=== PATIENT | female | born 1945 | race Caucasian/White ===

== ENCOUNTER 2022-06-12 12:51 | Outpatient (CLI) | payer MEDICARE, SELFPAY ==
[2022-06-12 13:03] LABS: Basophils Percent Auto 0.5 % (0.2-1.2); Eosinophils Absolute Auto 0.1 K/mm3 (0-0.3); Eosinophils Percent Auto 2.2 % (0-4.4); Hematocrit 33.7 % (37.0-47.0); Hemoglobin 11.5 g/dL (12.0-15.0); Immature Granulocyte Absolute 0.01 K/mm3 (0.00-0.031); Immature Granulocyte Percent A 0.2 % (0-0.5); Lymphocytes Absolute Auto 1.21 K/mm3 (0.9-3.2); Lymphocytes Percent Auto 18.9 % (18.3-44.2); Mean Corpuscular HGB Conc 34.1 g/dl (32-36); Mean Corpuscular Hemoglobin 30.8 pg (26-34); Mean Corpuscular Volume 90.3 fl (80-100); Mean Platelet Volume 8.2 fl (7.4-10.4); Monocytes Absolute Auto 0.5 K/mm3 (0.1-0.6); Monocytes Percent Auto 8.4 % (2.6-8.5); Neutrophils Absolute Auto 4.5 K/mm3 (1.3-6.7); Neutrophils Percent Auto 69.8 % (45.5-73.1); Platelet Count Result 184 k/mm3 (150-375); Red Blood Count 3.73 M/mm3 (4.2-5.4); Red Cell Distribution Width 12.7 % (11.5-14.5); White Blood Count 6.4 K/mm3 (4.5-10.0)
[2022-06-12 13:07] LABS: Blood Urea Nitrogen 20 mg/dL (8-26); Carbon Dioxide 32 mmol/L (22-30); Chloride 94 mmol/L (98-109); Estimated Glomerular Filt Rate > 60; Glucose 101 mg/dL (70-105); Potassium 3.5 mmol/L (3.5-4.9); Sodium 135 mmol/L (138-146)
[2022-06-12 13:38] LABS: Alanine Aminotransferase 16 U/L (6-35); Albumin Level 4.5 g/dL (3.5-5.1); Alkaline Phosphatase 88 U/L (38-126); Anion Gap 7 mmol/L (8-16); Aspartate Amino Transferase 30 U/L (14-36); Bilirubin,Total 0.4 mg/dL (0.2-1.3); Blood Urea Nitrogen 21 mg/dL (7-17); Calcium 9.3 mg/dL (8.4-10.2); Carbon Dioxide 31 mmol/L (22-30); Chloride 96 mmol/L (98-107); Estimated Glomerular Filt Rate > 60; Glucose 98 mg/dL (65-110); Potassium 3.6 mmol/L (3.4-5.0); Sodium 134 mmol/L (137-145)
== END 2022-06-12 12:52 | disposition home or self-care (01) ==
LOC: ANHLAB 12:52
PROVIDERS: PCP Family Medicine; Visit Provider Internal Medicine Hematology & Oncology
DX: C50.911 Malignant neoplasm of unspecified site of right female breast (principal)
CPT/HCPCS: 36415; 80047; 80053; 85025

== ENCOUNTER 2022-12-26 09:21 | Outpatient (CLI) | payer MEDICARE, SELFPAY ==
[2022-12-26 09:38] LABS: Basophils Percent Auto 0.6 % (0.2-1.2); Eosinophils Absolute Auto 0.1 K/mm3 (0-0.3); Eosinophils Percent Auto 2.1 % (0-4.4); Hematocrit 32.5 % (37.0-47.0); Hemoglobin 11.1 g/dL (12.0-15.0); Immature Granulocyte Absolute 0.01 K/mm3 (0.00-0.031); Immature Granulocyte Percent A 0.2 % (0-0.5); Lymphocytes Absolute Auto 1.14 K/mm3 (0.9-3.2); Lymphocytes Percent Auto 23.6 % (18.3-44.2); Mean Corpuscular HGB Conc 34.2 g/dl (32-36); Mean Corpuscular Hemoglobin 31.7 pg (26-34); Mean Corpuscular Volume 92.9 fl (80-100); Mean Platelet Volume 8.4 fl (7.4-10.4); Monocytes Absolute Auto 0.4 K/mm3 (0.1-0.6); Monocytes Percent Auto 7.5 % (2.6-8.5); Neutrophils Absolute Auto 3.2 K/mm3 (1.3-6.7); Platelet Count Result 187 k/mm3 (150-375); Red Cell Distribution Width 11.8 % (11.5-14.5); White Blood Count 4.8 K/mm3 (4.5-10.0)
[2022-12-26 10:50] LABS: Alanine Aminotransferase 13 U/L (6-35); Albumin Level 4.6 g/dL (3.5-5.1); Alkaline Phosphatase 67 U/L (38-126); Anion Gap 7 mmol/L (8-16); Aspartate Amino Transferase 31 U/L (14-36); Bilirubin,Total 0.4 mg/dL (0.2-1.3); Blood Urea Nitrogen 16 mg/dL (7-17); Calcium 9.6 mg/dL (8.4-10.2); Carbon Dioxide 28 mmol/L (22-30); Chloride 95 mmol/L (98-107); Estimated Glomerular Filt Rate > 60; Glucose 102 mg/dL (65-110); Potassium 4.9 mmol/L (3.4-5.0); Sodium 130 mmol/L (137-145)
[2022-12-29 06:19] LABS: CA 15-3 18 U/mL (<32)
== END 2022-12-26 09:22 | disposition home or self-care (01) ==
LOC: ANHLAB 09:23
PROVIDERS: PCP Family Medicine; Visit Provider Internal Medicine Hematology & Oncology
DX: C50.911 Malignant neoplasm of unspecified site of right female breast (principal)
CPT/HCPCS: 36415; 80053; 85025; 86300

== ENCOUNTER 2022-12-26 09:47 | Outpatient (CLI) | payer MEDICARE, SELFPAY ==
--- NOTE | ~2022-12-26 | MM_ITS ---
EXAMINATION: MM screening [facility] BI w aggie HISTORY: Screening mammogram, history of right breast cancer TECHNIQUE: Craniocaudal and mediolateral oblique 3-D tomosynthesis images were obtained and synthetic 2-D images were generated. CAD analysis was submitted and interpreted. COMPARISON: 12/24/2021, 12/19/2021 BREAST PARENCHYMAL COMPOSITION: There are scattered areas of fibroglandular density. FINDINGS: There is new focal asymmetry in the posterior third of the inner right breast as well as di ffuse skin thickening of the right breast, consistent with interval lumpectomy and radiation change. No suspicious mass, calcification, or architectural distortion are identified. IMPRESSION: 1. Changes of interval lumpectomy and radiation therapy in the right breast without mammographic evid ence of malignancy. 2. Recommend routine screening mammography in one year. BI-RADS Category 2: Benign finding(s). Reviewed, dictated and finalized at location L. IMPRESSION: 1. Changes of interval lumpectomy and radiation therapy in the right breast wit hout mammographic evidence of malignancy. 2. Recommend routine screening mammography in one year. BI-RADS Category 2: Benign finding(s).
--- NOTE | ~2022-12-26 | DEXA_ITS ---
Bone Density Report Name: KISHORE ALEXANDER Age: 77 Sex: Female Ethnicity: White Date of : 1945 Indication: postmenopausal; screening for osteoporosis; height loss; cancer; Referring Provider: MARCIANO MORALES Study: Bone densitometry was performed. Exam Date: December 26, 2022 Accession number: [id number] Bone Density: Region BMD T-score Z-score Classification AP Spine(L1-L4) 1.372 3.0 5.6 Normal Femoral Neck (Left) 0.694 -1.4 0.9 Osteopenia Total Hip (Left) 0.812 -1.1 0.9 Osteopenia Femoral Neck (Right) 0.755 -0.8 1.4 Normal Total Hip (Right) 0.818 -1.0 1.0 Normal Total Hip Mean 0.815 -1.1 1.0 Osteopenia World Health Organization criteria for BMD impression classify patients as: Normal (T-score at or above -1.0), Osteopenia (T-score between -1.0 and -2.5), or Osteoporosis (T-score at or below -2.5). 10-year Fracture Risk(1): Major Osteoporotic Fracture 13% Hip Fracture 2.8% Reported Risk Factors: [place] (), Neck BMD=0.694, BMI=26.3 (1) FRAX(R) Version 3.08. Fracture probability calculated for an untreated patient. Fracture probability may be lower if the patient has received treatment. Clinical Information Provided by Patient: Has the following medical conditions: Cancer Patient maximum height was 65 Menopause Age: 56 Onset of menses at age 9 Number of children 4 Impression: The patient has low bone mass, based on the Left Femoral Neck T-score. The patient has an estimated ten-year risk of hip fracture of 2.8% and an estimated ten-year risk of major fracture of 13%, based on the WHO FRAX algorithm. Discussion: BONE DENSITY IS LOW AT ONE OR MORE SKELETAL SITES. This patient's lowest T-score is low at one or more skeletal sites. It meets the World Health Organization's (WHO) criteria for ?low bone mass? (T-score between -1.0 and -2.5). The patient's 10-year risk of fracture as calculated by FRAX is less than the threshold where pharmacological therapy is recommended by the National Osteoporosis Foundation (NOF). However, all treatment decisions require clinical judgment and consideration of individual patient factors, including patient preferences, comorbidities, previous drug use, risk factors not captured in the FRAX model (e.g., frailty, falls, vitamin D deficiency, increased bone turnover, interval significant decline in bone density) and possible under or overestimation of fracture risk by FRAX. The patient should follow a healthful lifestyle (good nutrition with adequate calcium and vitamin D, and appropriate weight-bearing exercise). Follow-Up: Consider repeating this study in 2 to 3 years to reassess this patient's status, or sooner if there is some new clinical indication. Reported by: [facility] on 12/26/2022 10:30:00 AM.
== END 2022-12-26 09:48 | disposition home or self-care (01) ==
PROVIDERS: PCP Family Medicine; Visit Provider Internal Medicine Hematology & Oncology
DX: Z12.31 Encounter for screening mammogram for malignant neoplasm of breast (principal); M85.89 Other specified disorders of bone density and structure, multiple sites
CPT/HCPCS: 36415; 77063; 77067; 77080; 80053; 85025; 86300

== ENCOUNTER 2023-01-10 12:24 | Outpatient (CLI) | payer MEDICARE, SELFPAY ==
[2023-01-10 12:37] LABS: Basophils Percent Auto 0.4 % (0.2-1.2); Eosinophils Absolute Auto 0.1 K/mm3 (0-0.3); Eosinophils Percent Auto 1.5 % (0-4.4); Hematocrit 31.6 % (37.0-47.0); Hemoglobin 10.6 g/dL (12.0-15.0); Immature Granulocyte Absolute 0.02 K/mm3 (0.00-0.031); Immature Granulocyte Percent A 0.4 % (0-0.5); Lymphocytes Absolute Auto 1.19 K/mm3 (0.9-3.2); Mean Corpuscular HGB Conc 33.5 g/dl (32-36); Mean Corpuscular Hemoglobin 32.1 pg (26-34); Mean Corpuscular Volume 95.8 fl (80-100); Mean Platelet Volume 8.2 fl (7.4-10.4); Monocytes Absolute Auto 0.3 K/mm3 (0.1-0.6); Monocytes Percent Auto 6.2 % (2.6-8.5); Neutrophils Absolute Auto 3.5 K/mm3 (1.3-6.7); Neutrophils Percent Auto 68.5 % (45.5-73.1); Platelet Count Result 182 k/mm3 (150-375); Red Cell Distribution Width 12.2 % (11.5-14.5); White Blood Count 5.2 K/mm3 (4.5-10.0)
[2023-01-10 16:28] LABS: Iron 88 ug/dL (37-170)
[2023-01-10 16:39] LABS: Anion Gap 6 mmol/L (8-16); Blood Urea Nitrogen 11 mg/dL (7-17); Calcium 9.6 mg/dL (8.4-10.2); Carbon Dioxide 27 mmol/L (22-30); Chloride 96 mmol/L (98-107); Estimated Glomerular Filt Rate > 60; Glucose 90 mg/dL (65-110); Potassium 4.5 mmol/L (3.4-5.0); Sodium 129 mmol/L (137-145)
[2023-01-10 16:41] LABS: Percent Iron Saturation 31 % (20-50)
[2023-01-10 17:31] LABS: Vitamin B12 > 1000.0 pg/mL (239-931)
[2023-01-20 15:25] LABS: CA 15-3 21 U/mL (<32)
== END 2023-01-10 12:25 | disposition home or self-care (01) ==
LOC: ANHLAB 12:26
PROVIDERS: PCP Family Medicine; Visit Provider Internal Medicine Hematology & Oncology
DX: C50.911 Malignant neoplasm of unspecified site of right female breast (principal); D64.9 Anemia, unspecified; E55.9 Vitamin D deficiency, unspecified
CPT/HCPCS: 36415; 80048; 82306; 82607; 82728; 83540; 83550; 85025; 86300

== ENCOUNTER 2023-12-31 09:05 | Outpatient (CLI) | payer MEDICARE, SELFPAY ==
--- NOTE | ~2023-12-31 | MM_ITS ---
EXAMINATION: MM screening [facility] BI w aggie HISTORY: Screening mammogram TECHNIQUE: Craniocaudal and mediolateral oblique 3-D tomosynthesis images were obtained and synthetic 2-D images were generated. CAD analysis was submitted and interpreted. COMPARISON: 12/26/2022 BREAST PARENCHYMAL COMPOSITION:Dense: The breasts are heterogeneously dense, which may obscure small masses. FINDINGS: Stable bilateral benign calcifications. Stable diffuse skin thickening of the right breast. No suspicious mass, calcification, or architectural distortion are identified in either breast to doss ggest malignancy. There has been no suspicious interval change. IMPRESSION: No mammographic evidence of malignancy. Recommend routine screening mammography in one year. BI-RADS Category 2: Benign finding(s). Reviewed, dictated and finalized at location .
== END 2023-12-31 09:06 | disposition home or self-care (01) ==
LOC: ANHIMG 09:09
PROVIDERS: PCP Family Medicine; Referring Provider Radiology Radiation Oncology; Visit Provider Internal Medicine Hematology & Oncology
DX: Z12.31 Encounter for screening mammogram for malignant neoplasm of breast (principal)
CPT/HCPCS: 77063; 77067

== ENCOUNTER 2024-12-29 10:11 | Outpatient (CLI) | payer MEDICARE, SELFPAY ==
--- NOTE | ~2024-12-29 | DEXA_ITS ---
Bone Density Report Name: KISHORE ALEXANDER Age: 79 Sex: Female Ethnicity: White Date of : 1945 Indication: osteopenia; height loss; prior fracture; cancer; Referring Provider: MARCAINO MORALES Study: Bone densitometry was performed. Exam Date: December 29, 2024 Accession number: [id number] Bone Density: Region BMD T-score Z-score Classification AP Spine(L1-L4) 1.385 3.1 5.8 Normal Femoral Neck (Left) 0.704 -1.3 1.0 Osteopenia Total Hip (Left) 0.868 -0.6 1.5 Normal Femoral Neck (Right) 0.838 -0.1 2.2 Normal Total Hip (Right) 0.880 -0.5 1.6 Normal Total Hip Mean 0.874 -0.6 1.6 Normal World Health Organization criteria for BMD impression classify patients as: Normal (T-score at or above -1.0), Osteopenia (T-score between -1.0 and -2.5), or Osteoporosis (T-score at or below -2.5). 10-year Fracture Risk: FRAX not reported because: Prior hip or vertebral fracture Previous Exams: Region Exam Age BMD T-score BMD Change BMD Change Date g/cm2 vs Baseline vs Previous AP Spine (L1-L4) 12/29/2024 79 1.385 3.1 0.013 (1.0%) 0.013 (1.0%) 12/26/2022 77 1.372 3.0 Total Hip(Left) 12/29/2024 79 0.868 -0.6 0.056 (6.9%)* 0.056 (6.9%)* 12/26/2022 77 0.812 -1.1 Total Hip(Right) 12/29/2024 79 0.880 -0.5 0.061 (7.5%)* 0.061 (7.5%)* 12/26/2022 77 0.818 -1.0 *Denotes significance at 95% confidence level, LSC for AP Spine = 0.022 g/cm2, LSC for Total Hip = 0.027 g/cm2 Clinical Information Provided by Patient: Have had a previous hip or vertebral fracture Has had a low trauma fracture Has used the following medications: HRT (i.e. estrogen/hormone therapy), Calcium Has the following medical conditions: Cancer Patient maximum height was 65 Menopause Age: 56 No regular weight bearing exercise Drinks caffeinated beverages Onset of menses at age 9 Number of children 4 Impression: The patient has low bone mass, based on the Left Femoral Neck T-score. The patient has risk factors, including: previous fracture. No significant bone loss was observed. Discussion: INCREASED RISK OF FRACTURE DUE TO HISTORY OF FRACTURE. The patient's previous fracture puts the patient at high risk of a future fracture. In untreated patients, the risk of osteoporotic fracture increases approximately two-fold for each 1.0 SD decrease in T-score. Low bone density is not the only risk factor for fracture; also consider factors such as patient's age, frailty or poor health, risk of falling, risk of injury, previous osteoporotic fracture, family history of osteoporosis, cigarette smoking, low body weight, etc. Not everyone with a low trauma fracture has osteoporosis; osteomalacia and other metabolic bone disorders should also be considered. Patients who have osteoporosis should be evaluated for specific diseases and conditions (secondary causes) that may cause or contribute to bone loss and fracture risk. National Osteoporosis Foundation (NOF) recommends pharmacologic intervention for patients with a prior hip or vertebral fracture regardless of BMD T-score. The patient should follow a healthful lifestyle (good nutrition with adequate calcium and vitamin D, and appropriate weight-bearing exercise). Follow-Up: Consider a repeat BMD and Vertebral Fracture Assessment (VFA) exam in 2 years or sooner if medically necessary, to reassess this patient's status. Reported by: CAT on 12/29/2024 10:51:00 AM. Reviewed, dictated and finalized at location A.
--- OUTSIDE RECORDS SUMMARY | 2024-12-29 11:22 | XMS_ITS | Clinical Summary ---
Author Organization [facility] Address [address] [place] [address] Phone Care Team Providers Care Pelt Grader Name Role Phone Jannet Hunter MD Primary Care Provider Allergies No known active allergies Medications Euthyrox 88 mcg tablet 11/12/2021 Active metoprolol succinate (TOPROL XL) 25 mg Extended Release 24 hour tablet 11/06/2021 Active simvastatin (ZOCOR) 20 mg tablet 11/06/2021 Active acetaminophen (TYLENOL ARTHRITIS) 650 mg Extended Release tablet Take 650 mg by mouth every 6 hours as needed for Pain. Active cyanocobalamin 1,000 mcg Tablet Take 1,000 mcg by mouth daily. Active ascorbic acid, vitamin C, (VITAMIN C) 1,000 mg Tablet Take 1,000 mg by mouth daily. Active docusate calcium (SURFAK) 240 mg capsule Take 240 mg by mouth 2 times daily. Active glucosamine HCl/chondroitin doss (GLUCOSAMINE-CHO NDROITIN ORAL) Take by mouth. Active omega-3 fatty acids-fish oil 300-1,000 mg Capsule Take by mouth daily. Active multivitamin (DAILY-MICHELLE) tablet Take 1 Tablet by mouth daily. Active aspirin (ECOTRIN EC) 81 mg Tablet, Delayed Release (E.C.) Take 81 mg by mouth daily. Active spironolactone (ALDACTONE) 25 mg tablet Take 12.5 mg by mouth daily. Active lisinopriL (PRINIVIL) 10 mg tablet Take 10 mg by mouth daily. 12/16/2023 Active tamoxifen (NOLVADEX) 20 mg tabletIndication s:Invasive ductal carcinoma of breast, female, right (CMS/HCC),Chroni c anemia Take 1 Tablet (20 mg) by mouth daily. 90 Tablet 3 09/03/2024 Active Active Problems Problem Noted Date Diagnosed Date Invasive ductal carcinoma of breast, female, rig ht 01/28/2022 Abnormal mammogram 01/21/2022 Encounters Date Type Department Care Team Description 12/15/2024 External Device Data STL ABSTRACTION Provider, Abstract 11/30/2024 9:45 AM CDT Office Visit [facility] Oncology and Hematology [facility] [address] [place] [address] Richard Dominique MD Invasive ductal carcinoma of breast, female, right (CMS/HCC) (Primary Dx); Osteopenia of multiple sites; Visit for screening mammogram 11/30/2024 External Device Data STL ABSTRACTION Provider, Abstract 11/23/2024 Orders Only [facility] Oncology and Hematology [facility] [address] [place] [address] Richard Dominique MD 11/18/2024 Orders Only [facility] Oncology and Hematology [facility] [address] [place] [address] Richard Dominique MD 11/10/2024 External Device Data STL ABSTRACTION Provider, Abstract 11/09/2024 External Device Data STL ABSTRACTION Provider, Abstract 10/19/2024 External Device Data STL ABSTRACTION Provider, Abstract 09/28/2024 External Device Data STL ABSTRACTION Provider, Abstract from Last 3 Months Family History Medical History Relation Name Comments Diabetes Daughter 1 Diabetes Daughter 2 No Known Problems Daughter 3 Colon Cancer Father Young Tanner 66 Other Father Young Tanner Tuberculosis Hypertension Mother Roseline Tanner 1984 Thyroid Disease Mother Roseline Tanner 56 Diabetes Son Pancreatic Disease Son Relation Name Status Comments Daughter 1 Alive Daughter 2 Alive Daughter 3 Alive Father Young Tanner Mother Roseline Tanner Son Alive Social History Tobacco Use Types Packs/Day Years Used Date Smoking Tobacco: Never Smokeless Tobacco: Never Tobacco Cessation:Counseling Given: Not Answered Alcohol Use Standard Drinks/Week Comments Not Asked 0 (1 standard drink = 0.6 oz pur e alcohol) Comments No Sex and Gender Information Value Date Recorded Sex Assigned at Not on file Legal Sex Female 12:05 PM CDT Gender Identity Not on file Sexual Orientation Not on file Last Filed Vital Signs Vital Sign Reading Time Taken Comments Blood Pressure 133/68 11/30/2024 9:28 AM CDT Pulse 91 11/30/2024 9:28 AM CDT Temperature 36.3 C (97.3 F) 11/30/2024 9:28 AM CDT Respiratory Rate 15 11/30/2024 9:28 AM CDT Oxygen Saturation 96% 11/30/2024 9:28 AM CDT Inhaled Oxygen Concentration - - Weight 73.1 kg (161 lb 3.2 oz) 11/30/2024 9:28 AM CDT Height 165.1 cm (5' 5) 03/27/2022 1:19 PM FINE WIRE DRAWER Body Mass Index 26.83 03/27/2022 1:19 PM FINE WIRE DRAWER Plan of Treatment Upcoming Encounters Date Type Department Care Team (Late st Contact Info) Description 04/08/2025 12:30 PM FINE WIRE DRAWER Office Visit [facility] Oncology and Hematology - [place] [address] [facility] [address] [place] [address] Richard Dominique MD [address] [facility] [address] [place] [address] Health Maintenance Due Date Last Done Comments DTAP/TDAP/TD VACCINES (1 - Tdap) 02/26/1963 PNEUMOCOCCAL VACCINE 50+ YEA RS (1 of 1 - PCV) 02/26/1994 ZOSTER VACCINE (1 of 2) 02/26/1994 RSV VACCINE (60+ or ) (1 - 1-dose 75+ series) 02/26/2019 INFLUENZA VACCINE (#1) 2024 02/21/2022 OSTEOPOROSIS SCREENING 12/19/2026 12/19/2021, 2021 Medical Devices Implanted Type Area Rotary Furnace Tender Device Identifier Shelf Expiration Date Model / Serial / Lot Senior Resident Care Director Clip [place] Iii Ti Darin Sm 9in [id number] - [id number] Implanted:Qty : 1 on 2022 by Emilie Cortes MD at [facility] Clip Right: Axilla [employer] [id number] 10/25/2026 [id number] / / Procedures Procedure Name Priority Date/Time Associated Diagnosis Comments CANCER ANTIGEN 15-3 Routine 11/16/2024 3 :25 PM CDT CBC WITH AUTODIFFERENTIAL Routine 2024 1:58 PM CDT COMPREHENSIVE METABOLIC PANEL Routine 11/16/2024 1:49 PM CDT VITAMIN B12 LEVEL Routine 11/16/2024 8:5 2 AM CDT FERRITIN Routine 11/16/2024 8:51 AM CDT IRON, TIBC, AND PERCENT SATURATION Routine 11/16/2024 8:50 AM CDT from Last 3 Months Results * CANCER ANTIGEN 15-3 (11/16/2024 3:25 PM CDT) Blood us Richard Dominique MD CHEMISTRY ORDERABLES Final Resu lt * CBC WITH AUTODIFFERENTIAL (11/16/2024 1:58 PM CDT) Blood Richard Dominique MD HEMATOLOGY ORDERABLES Final Res ult * COMPREHENSIVE METABOLIC PANEL (11/16/2024 1:49 PM CDT) Blood Richard Dominique MD CHEMISTRY ORDERABLES Final Resu lt * VITAMIN B12 LEVEL (11/16/2024 8:52 AM CDT) Blood us Richard Dominique MD CHEMISTRY ORDERABLES Final Resu lt * FERRITIN (11/16/2024 8:51 AM CDT) Blood Richard Dominique MD CHEMISTRY ORDERABLES Final Resu lt * IRON, TIBC, AND PERCENT SATURATION (11/16/2024 8:50 AM CDT) Blood Richard Dominique MD CHEMISTRY ORDERABLES Final Resu lt from Last 3 Months Insurance MEDICARE PART A AND B [employer] INSURANCE MEDICARE PART A AND B [employer]URANCE Care Teams Pelt Grader Relationship Specialty Start Date End Date Jannet Hunter MD [address] [address] PCP - General Family Practice 01/21/22
== END 2024-12-29 10:12 | disposition home or self-care (01) ==
LOC: ANHFOHIMG 10:13
PROVIDERS: PCP Family Medicine; Visit Provider Internal Medicine Hematology & Oncology
DX: M85.89 Other specified disorders of bone density and structure, multiple sites (principal); M85.852 Other specified disorders of bone density and structure, left thigh
CPT/HCPCS: 77080